=== PATIENT | male | born 1950 | race Caucasian/White ===

== ENCOUNTER → 2020-08-14 | Outpatient (CLI) | payer MEDICARE, OTHER ==
[~2020-08-14] MED LIST: ASPIR 8181 MG PO; BRILINTA90 MG PO; CLARITIN10 MG PO; COLACE CLEAR50 MG PO; COREG6.25 MG PO; ENTRESTO 24 MG1 EACH PO; IMDUR PO; LIPITOR40 MG PO; LIPITOR80 MG PO; PANTOPRAZOLE SO40 MG PO; RANEXA500 MG PO; ZOFRAN ODT 4 MG4 MG SL
[2020-08-14 14:06] LABS: BUN/CREATININE RATIO 15 (0-10)
== END ==
LOC: LAB 10:53
PROVIDERS: Emergency Medicine
DX: I25.10 Atherosclerotic heart disease of native coronary artery without angina pectoris (principal); E78.2 Mixed hyperlipidemia; I10 Essential (primary) hypertension
CPT/HCPCS: 36415; 80053

== ENCOUNTER → 2020-09-03 | Outpatient (CLI) | payer MEDICARE, OTHER | LOC: CT 09:00 | DX: I72.3 Aneurysm of iliac artery (principal) | CPT/HCPCS: Q9967 ==

== ENCOUNTER → 2020-12-12 | Day surgery (SDC) | payer MEDICARE, OTHER ==
[~2020-12-12] MED LIST changes: +ALLEGRA ALLERG180 MG PO; +ISOSORBIDE MONO30 MG PO; +TAMSULOSIN HCL0.4 MG PO; +TOPROL XL25 MG PO
== END | disposition home or self-care (01) ==
LOC: OR 05:59
DX: Z12.11 Encounter for screening for malignant neoplasm of colon (principal); K57.30 Diverticulosis of large intestine without perforation or abscess without bleeding; K64.1 Second degree hemorrhoids; I25.10 Atherosclerotic heart disease of native coronary artery without angina pectoris; I10 Essential (primary) hypertension; E78.5 Hyperlipidemia, unspecified; Z20.822 Contact with and (suspected) exposure to COVID-19; I25.2 Old myocardial infarction; Z95.810 Presence of automatic (implantable) cardiac defibrillator; F17.210 Nicotine dependence, cigarettes, uncomplicated
CPT/HCPCS: J2704; J7040

== ENCOUNTER → 2021-01-03 | Outpatient (CLI) | payer MEDICARE, OTHER ==
[2021-01-03 11:30] LABS: HEMOGLOBIN 13.6 gm/dl (14.0-17.5); RED BLOOD COUNT 4.48 M/UL (4.20-5.50); WHITE BLOOD COUNT 9.7 K/UL (4.5-11.0)
[2021-01-03 11:47] LABS: BUN/CREATININE RATIO 16 (0-10)
[2021-01-06 12:10] LABS: CHOLESTEROL, TOTAL 141 mg/dL (100-199); HDL SIZE 9.1 nm (>=9.2); HDL-C 48 mg/dL (>39); HDL-P (TOTAL) 30.8 umol/L (>=30.5); LARGE HDL-P 6.3 umol/L (>=4.8); LARGE VLDL-P 2.8 nmol/L (<=2.7); LDL SIZE 20.9 nm (>20.5); LDL SIZE 20.9 nm (>=20.8); LDL-C 78 mg/dL (0-99); LDL-P 1034 nmol/L (<1000); LP-IR SCORE 52 (<=45); SMALL LDL-P 448 nmol/L (<=527); TRIGLYCERIDES 78 mg/dL (0-149); VLDL SIZE 47.1 nm (<=46.6)
== END ==
LOC: LAB 10:31
PROVIDERS: Emergency Medicine
DX: E78.2 Mixed hyperlipidemia (principal); I10 Essential (primary) hypertension; R53.83 Other fatigue; E53.8 Deficiency of other specified B group vitamins; Z88.8 Allergy status to other drugs, medicaments and biological substances
CPT/HCPCS: 36415; 80053; 80061; 83704; 84443; 84550; 85025

== ENCOUNTER → 2021-06-19 | Outpatient (CLI) | payer MEDICARE, OTHER ==
[2021-06-19 11:01] LABS: BUN/CREATININE RATIO 13 (0-10)
== END ==
LOC: LAB 10:24
PROVIDERS: Emergency Medicine
DX: E78.2 Mixed hyperlipidemia (principal); I10 Essential (primary) hypertension; N40.0 Benign prostatic hyperplasia without lower urinary tract symptoms; Z88.8 Allergy status to other drugs, medicaments and biological substances
CPT/HCPCS: 36415; 80053; 84550

== ENCOUNTER → 2021-07-28 | Outpatient (CLI) | payer MEDICARE, OTHER ==
[~2021-07-28] MED LIST changes: +ALBUTEROL0.63 MG/3 INH; +ASMANEX HFA13 G2; +BRILINTA60 MG PO; +CLEOCIN HCL300 MG PO; +HYDROCODON-ACE1 EAC4 PO; +LEVOFLOXACIN500 MG PO; +NITROSTAT 0.4100 TAB SL
[2021-07-28 10:08] LABS: RED BLOOD COUNT 4.59 M/UL (4.20-5.50); WHITE BLOOD COUNT 7.3 K/UL (4.5-11.0)
[2021-07-28 10:43] LABS: BUN/CREATININE RATIO 16 (0-10)
== END ==
LOC: RAD 09:41
PROVIDERS: Internal Medicine Cardiovascular Disease
DX: I11.0 Hypertensive heart disease with heart failure (principal); I50.22 Chronic systolic (congestive) heart failure; I25.5 Ischemic cardiomyopathy; Z45.02 Encounter for adjustment and management of automatic implantable cardiac defibrillator; Z20.822 Contact with and (suspected) exposure to COVID-19
CPT/HCPCS: 36415; 71046; 80048; 85025; U0003

== ENCOUNTER → 2021-07-30 | Outpatient (CLI) | payer MEDICARE, OTHER | LOC: CATH 11:31 | DX: Z45.02 Encounter for adjustment and management of automatic implantable cardiac defibrillator (principal); I25.5 Ischemic cardiomyopathy; I50.22 Chronic systolic (congestive) heart failure; F17.200 Nicotine dependence, unspecified, uncomplicated; E78.00 Pure hypercholesterolemia, unspecified; I25.10 Atherosclerotic heart disease of native coronary artery without angina pectoris; I25.2 Old myocardial infarction; I10 Essential (primary) hypertension; J44.9 Chronic obstructive pulmonary disease, unspecified; Z20.822 Contact with and (suspected) exposure to COVID-19; Z79.82 Long term (current) use of aspirin | CPT/HCPCS: 93641; 99152; 99153; C1882; J2250; J3010; J3370; J7040; J7050 ==

== ENCOUNTER → 2021-09-10 | Outpatient (CLI) | payer MEDICARE, OTHER ==
[2021-09-10 11:01] LABS: BUN/CREATININE RATIO 14 (0-10)
== END ==
LOC: LAB 09:58
PROVIDERS: Emergency Medicine
DX: Z12.5 Encounter for screening for malignant neoplasm of prostate (principal); I25.10 Atherosclerotic heart disease of native coronary artery without angina pectoris; I10 Essential (primary) hypertension; K21.9 Gastro-esophageal reflux disease without esophagitis; E78.2 Mixed hyperlipidemia; J20.9 Acute bronchitis, unspecified; Z95.0 Presence of cardiac pacemaker
CPT/HCPCS: 36415; 80053; G0103

== ENCOUNTER → 2021-10-21 | Outpatient (CLI) | payer MEDICARE, OTHER ==
[~2021-10-21] MED LIST changes: +BENADRYL25 MG PO; +FLONASE ALLER15.8 ML; +STIOLTO RESPIMAT4 GM IH
[2021-10-21 13:44] LABS: HEMOGLOBIN 13.8 gm/dl (14.0-17.5); RED BLOOD COUNT 4.61 M/UL (4.20-5.50); WHITE BLOOD COUNT 8.4 K/UL (4.5-11.0)
[2021-10-21 14:04] LABS: BUN/CREATININE RATIO 18 (0-10)
== END ==
LOC: OPSV2 12:30
PROVIDERS: Surgery
DX: Z01.818 Encounter for other preprocedural examination (principal)
CPT/HCPCS: 71046; 80048; 85025; 93005